=== PATIENT | male | born 2000 | race Hispanic/Latino ===

== ENCOUNTER 2025-02-13 09:13 | Emergency (ER) | payer OTHER ==
--- NOTE | 2025-02-13 09:22 | ERPHSYRPT ---
- History of Present Illness Time Seen by Provider: 02/13/25 09:22 Source: patient, family Exam Limitations: no limitations Physician History: This is a 24-year-old right-handed male who arrives by private vehicle and does not have a local primary care provider and has lived in the [facility] for 2 years having secured a job at the [employer]. Today, approximately 1-1/2 hours prior to arrival, the patient's shirt got caught up in a chain mechanism of a saw. He tried to pull the shirt out and off and when he did that the shirt wrapped around his right forearm causing significant pain, abrasion and swelling. Patient states his tetanus immunization is up-to-date. He has no known drug allergies and he takes no medications chronically. Occurred: just prior to arrival Method of Injury: twisted (Patient's shirt twisted around right mid forearm) Quality: constant, aching, throbbing Severity of Pain-Max: moderate Severity of Pain-Current: moderate Extremities Pain Location: forearm: right Modifying Factors: Improves With: movement Associated Symptoms: none Allergies/Adverse Reactions: No Known Drug Allergies Allergy (Unverified 02/13/25 09:33) Travel Risk - International Travel Have you traveled outside of the country in past 3 weeks: No - Emerging Infectious Disease Are you exhibiting symptoms associated with any current EIDs: No - Review of Systems Constitutional: No Symptoms Eyes: No Symptoms Ears, Nose, & Throat: No Symptoms Respiratory: No Symptoms Cardiac: No Symptoms Abdominal/Gastrointestinal: No Symptoms Genitourinary Symptoms: No Symptoms Musculoskeletal: Injury (Right mid forearm abrasion and significant swelling) Skin: Other (Abrasions to the right forearm) Neurological: No Symptoms Psychological: No Symptoms Endocrine: No Symptoms Hematologic/Lymphatic: No Symptoms Immunological/Allergic: No Symptoms All Other Systems: Reviewed and Negative - Past Medical History Pertinent Past Medical History: No - Nursing Vital Signs Nursing Vital Signs: Initial Vital Signs Temperature 98 F 02/13/25 09:14 Pulse Rate 60 02/13/25 09:14 Respiratory Rate 16 02/13/25 09:14 Blood Pressure 135/75 02/13/25 09:14 O2 Sat by Pulse Oximetry 100 02/13/25 09:14 Pain Scale Pain Intensity 9 - Physical Exam General Appearance: no apparent distress, alert, anxiety, thin Eyes, Ears, Nose, Throat Exam: normal ENT inspection, moist mucous membranes Neck Exam: normal inspection, non-tender, supple, full range of motion Cardiovascular/Respiratory Exam: chest non-tender, no respiratory distress Abdominal Exam: non-tender Back Exam: normal inspection, normal range of motion, No CVA tenderness, No vertebral tenderness Shoulder Exam: normal inspection, non-tender, no evidence of injury, normal ROM Elbow/Forearm Exam: bone tenderness (Right forearm), limited ROM (Right forearm, wrist and hand/digits), soft tissue tenderness (Primarily mid substance of right forearm), swelling (Primarily mid substance of right forearm) Wrist Exam: normal inspection (Strong radial pulse palpable. ) Hand Exam: limited ROM, soft tissue tenderness (All 5 digits with distal normal cap refill) Mental Status Exam: alert, oriented x 3, cooperative Skin Exam: abrasion (Abrasion mid substance right forearm) SpO2 Interpretation: normal O2 Delivery: Room Air - Course Nursing assessment & vital signs reviewed: Yes Ordered Tests: Active Orders 24 hr Category Date Time Status UPPER EXTREMITY W/O CONTRAST [CT] Stat Exams 02/13/25 09:51 Taken Medication Summary Discontinued Medications Generic Name Dose Route Start Last Admin Trade Name Rodríguez PRN Reason Stop Dose Admin Ibuprofen 600 mg 02/13/25 09:51 02/13/25 10:00 Ibuprofen 600 Mg Tablet PO 02/13/25 09:52 600 mg STAT ONE Administration Ibuprofen Confirm 02/13/25 09:59 Ibuprofen 600 Mg Tablet Administered 02/13/25 10:00 Dose 600 mg .ROUTE .STK-MED ONE Oxycodone/Acetaminophen 1 tab 02/13/25 09:51 02/13/25 10:00 Oxycodone Hcl/Apap 5 Mg/325 Mg Tablet PO 02/13/25 09:52 1 tab STAT STA Administration Oxycodone/Acetaminophen Confirm 02/13/25 09:59 Oxycodone Hcl/Apap 5 Mg/325 Mg Tablet Administered 02/13/25 10:00 Dose 1 tab .ROUTE .STK-MED ONE - Progress Progress: improved, pain not gone completely, re-examined Progress Note: 02/13/25 10:00 My medical decision making and the assignment of moderate complexity of this patient's medical issue today is based on review of the patient's past medical history, reviewed patient's medication list, reviewed patient drug allergy list, history present illness and physical findings on examination. The workup in this patient includes providing the patient with pain control, CT scan of the right upper extremity from the elbow distally to include hand and fingers on the right side. We will also obtain orthopedic consultation. Differential diagnosis includes was not limited to right forearm fracture, right forearm hematoma, compartment syndrome right forearm, tendon injury right forearm 02/13/25 11:22 Dr. Shelby, orthopedic surgeon on-call at this time was consulted. He personally evaluated this patient and stated that he does not feel the patient has compartment syndrome. An Champ wrap was applied. Patient will need rest, ice, elevation, anti-inflammatory medication and reassessment by orthopedic services on 02/15/2025. In addition, I will send a prescription for pain medicine and antibiotics for this patient. We will await the final read of the CT scan from the radiologist before we discharged the patient to home 02/13/25 12:[address] scan of the right upper extremity shows anterior wrist with punctate rollins bcutaneous emphysema presumed related to the injury sustained. Normal right forearm without contrast exam. This study was interpreted by the radiologist Counseled pt/family regarding: diagnosis, need for follow-up, rad results - Departure Departure Disposition: Home Clinical Impression: Traumatic hematoma of right forearm, Abrasion of right forearm, initial encounter Condition: Stable Critical Care Time: No Referrals: DOCTOR,NO FAMILY [Primary Care Provider, UNKNOWN] - Follow up/PCP as directed Additional Instructions: Elevate right arm above the level of the heart. Keep the abrasion sites clean daily with soap and water. Apply antibiotic ointment of choice. Take your prescription pain medicine and antibiotics as prescribed. In addition, add ibuprofen 600 mg with food 3 times a day for the next 5 days. Follow-up in the orthopedic clinic here at [facility] on 02/15/2025 at 10:30 AM. Make certain you wear the right forearm Champ wrap for compression. Forms: Ortho Referral Prescriptions: Oxycodone HCl/Acetaminophen [Percocet 5-325 mg Tablet] 1 each PO Q8H PRN PRN #6 tablet MDD 3 PRN Reason: Moderate To Severe Pain Cephalexin Mh 500 mg [Keflex 500 mg] 500 mg PO TID #15 cap
[2025-02-13 09:41] VITALS: RESP 16; TEMP 98
[2025-02-13] MEDS ORDERED: MOTRIN 600 MG ONE (09:59)
[2025-02-13] MEDS ORDERED: PERCOCET TABLET 5/325MG ONE (09:59)
[2025-02-13] MEDS: MOTRIN 600 MG PO ONE (10:00)
[2025-02-13] MEDS: PERCOCET TABLET 5/325MG PO STA (10:00)
[2025-02-13 11:13] VITALS: O2SAT 99
[2025-02-13 12:03] VITALS: BP 125/93; PULSE 84
--- NOTE | 2025-02-13 12:11 | XRAY ---
Indication: Injury at [facility]. Multiple contiguous axial images obtained through right forearm to include elbow, wrist, and hand without contrast as ordered. Sagittal and coronal reformatted images obtained. Comparison: None Anterior wrist demonstrates punctate subcutaneous emphysema presumed related to injury. Otherwise normal bones, articulation, and noncontrasted soft tissues. Impression: Anterior wrist punctate subcutaneous emphysema presumed related to injury. Normal CT right forearm without contrast exam.
--- NOTE | 2025-02-14 09:42 | CONS ---
DATE OF CONSULTATION: 02/13/2025 REASON FOR CONSULTATION: Right forearm injury HISTORY OR PRESENT ILLNESS: Mr. Mynor Atkins is a 24-year-old right-hand dominant male who sustained an injury to this right upper extremity at work earlier today. While working with a piece of machinery, the end of his shirt became tangled in the machinery. While trying to remove his shirt, the shirt became wrapped around the mid-portion of his forearm. The patient presented to [facility] due to pain and swelling in the forearm after this injury. Orthopaedic Surgery was consulted for evaluation of the patient, given the swelling noted in the upper extremity. The patient currently reports pain around the injury site but not pain throughout the entire forearm. The patient reports some difficulty moving his fingers; the patient only reports pain with motion of the 4th digit. The patient denies any numbness or tingling in the right upper extremity. No other problems are reported. PAST MEDICAL HISTORY: None PAST SURGICAL HISTORY: None HOME MEDICATIONS: None ALLERGIES: NO KNOWN MEDICAL ALLERGIES FAMILY HISTORY: Noncontributory SOCIAL HISTORY: The patient denies use of tobacco, alcohol, or illicit drug use. REVIEW OF SYSTEMS: All systems were reviewed and are negative, except as mentioned in the HPI. PHYSICAL EXAMINATION: On examination, the patient stands 5'0" tall and weighs 53 kg for a BMI of 27.1. The patient is alert and oriented, in no acute distress. The patient interacts appropriately during the examination. Examination of the patient's gait reveals the patient to be full weightbearing on both lower extremities. Examination of the right upper extremity reveals superficial lacerations around the proximal forearm; there is no erythema; there is mild bruising about the proximal forearm. There is moderate swelling about the proximal forearm. There is tenderness to palpation around the region of swelling; there is no tenderness to palpation throughout the remainder of the forearm; the forearm compartments are soft. The patient is able to flex and extend all of his digits; passive extension of the digits does not elicit pain, except for pain along the course of the extensor tendon with extension of the 4th digit. The patient has a 2+ radial pulse; the patient's capillary refill is less than 2 seconds. The patient's distal sensation is grossly intact to light touch. IMAGING STUDIES: A CT scan of the right upper extremity dated 02/13/2025 performed at [facility] was independently reviewed. This study indicates no evidence of fracture; soft tissue swelling is noted. IMPRESSION: Right forearm injury PLAN: Mr. Mynor Renner sustained a unique injury to the right forearm. Apparently, his shirt got wrapped around the right proximal forearm, resulting in a crush-type injury to the region. The patient has localized swelling that is limited just to the proximal forearm area. There is tenderness to palpation about this area, but there is no evidence of acute compartment syndrome at this time; the forearm compartments are soft, and there is no pain with passive range of motion of the digits. The recommendation at this time is for ice, rest, compression, anti-inflammatory medications, and elevation of the right upper extremity. The patient will follow-up in the Orthopaedic Clinic for repeat evaluation on 02/15/2025. However, the patient has been instructed to return to the hospital for worsening of his symptoms. The patient has been instructed to call if there are any problems, questions, or concerns.
== END 2025-02-13 12:19 | disposition home or self-care (01) ==
LOC: ED 09:13
DX: S50.11XA Contusion of right forearm, initial encounter (principal); S50.811A Abrasion of right forearm, initial encounter; W23.0XXA Caught, crushed, jammed, or pinched between moving objects, initial encounter; Y92.69 Other specified industrial and construction area as the place of occurrence of the external cause; Y99.0 Civilian activity done for income or pay; Z79.891 Long term (current) use of opiate analgesic; Z79.899 Other long term (current) drug therapy